=== PATIENT | male | born 1975 | race Two or more races ===

== ENCOUNTER → 2024-09-02 | Outpatient (CLI) | payer MEDICAID, SELFPAY ==
--- NOTE | 2024-09-02 13:00 | XR_ITS ---
Examination: CHIDI, hepatobiliary radioisotope scan Gallbladder ejection fraction study. Date and time of exam: September 02, 2024 1309 hours INDICATIONS: Epigastric pain 6 months Technique: 6.1 mCi of 99M Hepatolite administered. Serial imaging then obtained from immediate through 60 minutes. 2.0 mcg selective catheter Kinevac administered for gallbladder ejection fraction study. Findings: Radioisotope activity within the liver is reasonably homogenous. Gallbladder, common bile duct small bowel activity noted Impression: Gallbladder activity Normal gallbladder ejection fraction, 60%
== END | disposition home or self-care (01) ==
LOC: SNUC 12:39
PROVIDERS: PCP Internal Medicine; Referring Provider Internal Medicine Gastroenterology; Visit Provider Internal Medicine Gastroenterology
DX: R10.11 Right upper quadrant pain (principal); R10.13 Epigastric pain
CPT/HCPCS: 78226; A9537; J2805